=== PATIENT | female | born 1940 | race Two or more races ===

== ENCOUNTER 2019-02-04 14:50 | Inpatient (IN) | payer MEDICARE, OTHER ==
[2019-02-04] MEDS ORDERED: Sodium Chloride 0.9% 1,000 ML IV ONE (14:58)
--- NOTE | 2019-02-04 15:15 | ED Physician Chart ---
ED Chief Complaint/HPI - Patient Information Date Seen:: 02/04/19 Time Seen:: 15:00 Chief Complaint:: Flank Pain History of Present Illness:: onset x 12 hours of intermittent flank pain; pt denies trauma, LOC, ALOC, AMS, H /As,S/T, neck pain, cough, C/P, SOB, Abd. Pain, A/N/V/D/C, fever, chills, bleeding, or urinary s/s Allergies:: Allergies Allergy/AdvReac Type Severity Reaction Status Date / Time No Known Allergies Allergy Verified 02/04/19 15:07 Historian:: Patient, Family Member Review:: Nurse's Note Reviewed, Old Chart Reviewed ED Review of Systems - Review of Systems General/Constitutional: No fever, No chills, No weight loss, No weakness, No diaphoresis, No edema, No loss of appetite Skin: No skin lesions, No rash, No bruising Head: No headache, No light-headedness Eyes: No loss of vision, No pain, No diplopia ENT: No earache, No nasal drainage, No sore throat, No tinnitus Neck: No neck pain, No swelling, No thyromegaly, No stiffness, No mass noted Cardio Vascular: No chest pain, No palpitations, No PND, No orthopnea, No edema Pulmonary: No SOB, No cough, No sputum, No wheezing GI: Nausea, Vomiting, Diarrhea, Pain, No melena, No hematochezia, No constipation, No hematemesis G/U: Dysuria, No frequency, No hematuria, No nacturia Phys Assistant: No vaginal discharge, No abnormal vaginal bleed, No contraction Musculoskeletal: No bone or joint pain, No back pain, No muscle pain Endocrine: No polyuria, No polydipsia Psychiatric: No prior psych history, No depression, Anxiety, No suicidal ideation, No homicidal ideation, No auditory hallucination, No visual hallucination Hematopoietic: No bruising, No lymphadenopathy Allergic/Immuno: No urticaria, No angioedema Neurological: No syncope, No focal symptoms, No weakness, No paresthesia, No headache, No seizure, No dizziness, No confusion, No vertigo ED Past Medical History - Past Medical History Obtainable: Yes Past Medical History: HTN, DM, Dyslipidemia, ESRD, Arthritis Family History: Diabetes Melitus, HTN Social History: Non Smoker, No Alcohol, No Drug Use, Surgical History: None Psychiatricy History: None Medication: Reviewed Family Medical History - Family Member Mother History Unknown: Yes Ethnicity: Living Status: ED Physical Exam - Physical Examination General/Constitutional: Awake, Well-developed, well-nourished, Alert, No distress, GCS 15, Non-toxic appearing, Ambulatory Head: Atraumatic Eyes: Lids, conjuctiva normal, PERRL, EOMI Skin: Nl inspection, No rash, No skin lesions, No ecchymosis, Well hydrated, No lymphadenopathy ENMT: External ears, nose nl, TM canals nl, Nasal exam nl, Lips, teeth, gums nl , Oropharynx nl, Tonsils nl Neck: Nontender, Full ROM w/o pain, No JVD, No nuchal rigidity, No bruit, No mass, No stridor Other Neck comments:: supple; no meningeal signs; no cervical tenderness; no bruits Respiratory: Nl effort/Exclusion, Clear to Auscultation, No Wheeze/Rhonchi/Rales Cardio Vascular: RRR, No murmur, gallop, rubs, NL S1 S2, Carotid/Femoral/Distal pulses equal bilaterally GI: No tenderness/rebounding/guarding, No organomegaly, No hernia, Normal BS's, Nondistended, No mass/bruits, No McBurney tenderness, Rectum exam nl Other GI comments:: no pulsatile masses; good BS : No CVA tenderness Extremities: No tenderness or effusion, Full ROM, normal strength in all extremities, No edema, Normal digits & nails Neuro/Psych: Alert/oriented, DTR's symmetric, Normal sensory exam, Normal motor strength, Judgement/insight normal, Mood normal, Normal gait, No focal deficits Other Neuro/Psych comments:: no focal signs Misc: Normal back, No paraspinal tenderness ED Labs/Radiology/EKG Results - Lab Results Comments:: Reviewed - Radiology Results Comments:: + Diverticulosis; NAD - EKG Interpretations EKG Time:: 15:18 Rate & Rhythm: 57; SB Comments:: non-specific st-t changes ED Septic Shock - . Is Septic Shock (SBP<90, OR Lactate>4 mmol\L) present?: No ED Reassessment (Disposition) - Reassessment Reassessment Condition:: Improved - Diagnosis Diagnosis:: Flank Pain; Anemia; Dehydration; Hyponatremia; Pre-Renal Azotemia; CKD; UTI - Aftercare/Follow up Instructions Aftercare/Follow-Up Instructions:: Counseled pt regarding lab results/diagnosis & need follow up, Counseled pt & family regarding lab results/diagnosis & need follow up - Patient Disposition Discharge/Transfer:: Acute Care w/in this hosp Accepting Physician:: Dr. Cadet Time Called:: 1700 Time Responded:: 17:00 Admitted to:: Telemetry Spoke to:: Dr. Cadet Admitting Medical Physician:: Dr. Cadet Condition at Disposition:: Stable, Improved
[2019-02-04 15:21] LABS: % BASOPHILS 0.7 % (0.0-2.0); % EOSINOPHILS 5.5 % (0.0-5.0); % MONOCYTES 9.4 % (2.0-10.0); % NEUTROPHILS 58.4 % (40.0-80.0); EOSINOPHILE ABSOLUTE 0.4 Th/cmm (0.1-0.4); HEMOGLOBIN 9.4 gm/dL (12-16); LYMPHOCYTE ABSOLUTE 1.7 Th/cmm (1.5-3.0); MEAN CELL VOLUME 94.3 fl (81-100); MEAN CORPUSCULAR HEMOGLOBIN 31.7 pg (27.0-31.0); MEAN CORPUSCULAR HGB CONC 33.7 pg (28.0-36.0); MEAN PLATELET VOLUME 7.4 fl; MONOCYTE ABSOLUTE 0.6 Th/cmm (0.3-1.0); NEUTROPHILE ABSOLUTE 3.9 Th/cmm (1.8-8.0); PLATELET COUNT 255 Th/cmm (150-400); RED BLOOD COUNT 2.98 Mil/cmm (3.80-5.20); RED CELL DISTRIBUTION WIDTH 12.6 % (11.5-20.0); WHITE BLOOD COUNT 6.6 Th/cmm (4.8-10.8)
[2019-02-04 15:33] LABS: ALB/GLOB RATIO 1.4 (1.0-1.8); ALKALINE PHOSPHATASE 65 U/L (34-104); AMYLASE SERUM 85 U/L (29-103); ANION GAP 15.5 (7.0-16.0); BILIRUBIN,TOTAL 0.5 mg/dL (0.3-1.0); BUN - UREA NITROGEN 65 mg/dL (7-25); CALCIUM SERUM 9.1 mg/dL (8.6-10.3); CHLORIDE 106 mEq/L (98-107); CREATININE - SERUM 2.2 mg/dL (0.6-1.2); GLUCOSE 94 mg/dL (70-105); LIPASE 83 U/L (11-82); POTASSIUM SERUM 4.5 mEq/L (3.5-5.1); SGOT 19 U/L (13-39); SGPT/ALT 17 U/L (7-52); SODIUM SERUM 134 mEq/L (136-145); TOTAL PROTEIN,SERUM 6.8 gm/dL (6.0-8.3)
[2019-02-04 15:36] LABS: URINE SOURCE CLEAN C
[2019-02-04 15:38] LABS: URINE BILIRUBIN NEGATIVE (NEGATIVE); URINE BLOOD NEGATIVE (NEGATIVE); URINE GLUCOSE (UA) NEGATIVE (NEGATIVE); URINE KETONE NEGATIVE (NEGATIVE); URINE LEUKOCYTE ESTERASE SMALL (NEGATIVE); URINE NITRATE NEGATIVE (NEGATIVE); URINE PROTEIN NEGATIVE (NEGATIVE); URINE UROBILINOGEN 0.2 E.U./dL (0.2 - 1.0)
[2019-02-04 15:39] LABS: URINE CLARITY CLEAR (CLEAR); URINE COLOR YELLOW
[2019-02-04 15:40] LABS: URINE MICROSCOPIC INDICATED? YES
[2019-02-04 15:49] LABS: URINE RBC 0-2 /hpf (0-5)
[2019-02-04 15:50] LABS: URINE BACTERIA FEW /hpf (NONE SEEN); URINE EPITHELIAL CELLS MODERATE /lpf (FEW); URINE FINE GRANULAR CAST 0-2 /lpf (NONE SEEN)
[2019-02-04] MEDS ORDERED: cefTRIAXone 1 GM in Sodium Chloride 0.9% 50 ML IV ONE (16:13)
[2019-02-04] MEDS: Sodium Chloride 0.9% 1,000 ML IV SCH (19:00)
[2019-02-04] MEDS: Ferrous Sulfate 325 MG TAB PO SCH (21:42)
[2019-02-05 05:29] VITALS: BP 129/68
[2019-02-05 05:40] LABS: % BASOPHILS 0.7 % (0.0-2.0); % LYMPHOCYTES 17.4 % (20.0-50.0); % MONOCYTES 6.1 % (2.0-10.0); % NEUTROPHILS 72.8 % (40.0-80.0); BASOPHILE ABSOLUTE 0.1 Th/cumm (0-0.2); EOSINOPHILE ABSOLUTE 0.2 Th/cmm (0.1-0.4); HEMATOCRIT 27.6 % (41.0-60); HEMOGLOBIN 9.1 gm/dL (12-16); LYMPHOCYTE ABSOLUTE 1.4 Th/cmm (1.5-3.0); MEAN CELL VOLUME 94.6 fl (81-100); MEAN CORPUSCULAR HEMOGLOBIN 31.1 pg (27.0-31.0); MEAN CORPUSCULAR HGB CONC 32.9 pg (28.0-36.0); MEAN PLATELET VOLUME 7.9 fl; MONOCYTE ABSOLUTE 0.5 Th/cmm (0.3-1.0); PLATELET COUNT 231 Th/cmm (150-400); RED BLOOD COUNT 2.92 Mil/cmm (3.80-5.20); RED CELL DISTRIBUTION WIDTH 12.6 % (11.5-20.0)
[2019-02-05 05:50] LABS: WHITE BLOOD COUNT 8.2 Th/cmm (4.8-10.8)
[2019-02-05 05:54] LABS: ALB/GLOB RATIO 1.4 (1.0-1.8); ALBUMIN 3.3 gm/dL (3.7-5.3); ALKALINE PHOSPHATASE 57 U/L (34-104); BILIRUBIN,TOTAL 0.5 mg/dL (0.3-1.0); BUN - UREA NITROGEN 59 mg/dL (7-25); CALCIUM SERUM 8.6 mg/dL (8.6-10.3); CARBON DIOXIDE 17.8 mEq/L (21.0-31.0); CHLORIDE 116 mEq/L (98-107); CREATININE - SERUM 2.1 mg/dL (0.6-1.2); GLUCOSE 102 mg/dL (70-105); POTASSIUM SERUM 4.8 mEq/L (3.5-5.1); SGOT 17 U/L (13-39); SGPT/ALT 16 U/L (7-52); SODIUM SERUM 142 mEq/L (136-145); TOTAL PROTEIN,SERUM 5.7 gm/dL (6.0-8.3)
[2019-02-05] MEDS: Ferrous Sulfate 325 MG TAB PO SCH ×2 (08:26→16:04)
[2019-02-05] MEDS: Multivitamin Tab PO SCH (08:26)
--- NOTE | 2019-02-05 08:46 | Diagnostic Imaging Report ---
CT abdomen and pelvis without intravenous contrast Indication: Abdominal pain Comparison: None, Technique: Axial images were obtained from the lung bases to the bilateral proximal femurs without IV contrast. Coronal reconstructions were made. total DLP: 391, CTDI8.9 FINDINGS: Hypoventilatory and atelectatic changes of the lung bases are noted. Evaluation of the solid organs is limited due to lack of IV contrast. There is a subcentimeter low-density lesion within the left lobe of the liver, too small to characterize but suggestive of a cyst. No radiopaque gallstones. No focal splenic, pancreatic, or adrenal lesions. Nonspecific mild perinephric inflammatory changes are noted. No evidence of hydronephrosis or nephrolithiasis. There is area of fat density along the left inguinal region which appears to be located lateral to the left inguinal canal and medial to the left femoral vessels. There may be an opening seen on coronal image 34, series 3. This area measures 6.0 x 3.5 cm containing fat. Minimal inflammatory changes are seen along the anterior left lower quadrants lower segmental region. The bladder is underdistended limiting its evaluation. There are moderate stool throughout the colon. Diverticulosis is noted without diverticulitis. No appendicitis. No free fluid or free air. Heavy atherosclerotic vascular noted. Degenerative changes of the spine and pelvis are noted. Borderline prominent right inguinal lymph nodes are noted. IMPRESSION: No evidence of appendicitis Diverticulosis without evidence of diverticulitis. Nonspecific generalized gas loops of bowel. Fat density area measuring 6.0 x 3.5 cm located lateral to the left inguinal canal medial to the femoral vessels. A small occult fat-containing hernia cannot be excluded. There are minimal inflammatory changes seen along the left lower quadrant omental region. If this is a fat-containing hernia lateral to the left inguinal region, the opening may be seen at coronal image 34, series 3. Other etiologies such as a lipoma is less likely. Clinical correlation and correlation with old exams would be helpful. Heavy atherosclerotic vascular disease.
--- NOTE | 2019-02-05 09:37 | Internal Medicine Prog Note ---
Internal Medicine Subjective - Subjective Service Date: 02/05/19 (no acute events. C/O lbp/flank pain.) Patient is:: awake, in bed Per staff patient has:: no adverse event Internal Medicine Objective - Results Result Diagrams: 02/05/19 05:15 02/05/19 05:15 Recent Labs: Laboratory Last Values WBC 8.2 Th/cmm (4.8-10.8) D 02/05/19 05:15 RBC 2.92 Mil/cmm (3.80-5.20) L 02/05/19 05:15 Hgb 9.1 gm/dL (12-16) L 02/05/19 05:15 Hct 27.6 % (41.0-60) L 02/05/19 05:15 MCV 94.6 fl (81-100) 02/05/19 05:15 MCH 31.1 pg (27.0-31.0) H 02/05/19 05:15 MCHC Differential 32.9 pg (28.0-36.0) 02/05/19 05:15 RDW 12.6 % (11.5-20.0) 02/05/19 05:15 Plt Count 231 Th/cmm (150-400) 02/05/19 05:15 MPV 7.9 fl 02/05/19 05:15 Neutrophils % 72.8 % (40.0-80.0) 02/05/19 05:15 Lymphocytes % 17.4 % (20.0-50.0) L 02/05/19 05:15 Monocytes % 6.1 % (2.0-10.0) 02/05/19 05:15 Eosinophils % 3.0 % (0.0-5.0) 02/05/19 05:15 Basophils % 0.7 % (0.0-2.0) 02/05/19 05:15 Sodium 142 mEq/L (136-145) 02/05/19 05:15 Potassium 4.8 mEq/L (3.5-5.1) 02/05/19 05:15 Chloride 116 mEq/L (98-107) H 02/05/19 05:15 Carbon Dioxide 17.8 mEq/L (21.0-31.0) L 02/05/19 05:15 Anion Gap 13.0 (7.0-16.0) 02/05/19 05:15 BUN 59 mg/dL (7-25) H 02/05/19 05:15 Creatinine 2.1 mg/dL (0.6-1.2) H 02/05/19 05:15 Est GFR ( Amer) TNP 02/05/19 05:15 Est GFR (Non-Af Amer) TNP 02/05/19 05:15 BUN/Creatinine Ratio 28.1 02/05/19 05:15 Glucose 102 mg/dL (70-105) 02/05/19 05:15 Calcium 8.6 mg/dL (8.6-10.3) 02/05/19 05:15 Total Bilirubin 0.5 mg/dL (0.3-1.0) 02/05/19 05:15 AST 17 U/L (13-39) 02/05/19 05:15 ALT 16 U/L (7-52) 02/05/19 05:15 Alkaline Phosphatase 57 U/L (34-104) 02/05/19 05:15 Troponin I < 0.01 ng/mL (0.01-0.05) L 02/04/19 15:10 Total Protein 5.7 gm/dL (6.0-8.3) L 02/05/19 05:15 Albumin 3.3 gm/dL (3.7-5.3) L 02/05/19 05:15 Globulin 2.4 gm/dL 02/05/19 05:15 Albumin/Globulin Ratio 1.4 (1.0-1.8) 02/05/19 05:15 Amylase 85 U/L (29-103) 02/04/19 15:10 Lipase 83 U/L (11-82) H 02/04/19 15:10 TSH 1.88 uIU/ml (0.34-5.60) 02/05/19 05:15 Urine Source CLEAN C 02/04/19 15:00 Urine Color YELLOW 02/04/19 15:00 Urine Clarity CLEAR (CLEAR) 02/04/19 15:00 Urine pH 6.0 (4.6 - 8.0) 02/04/19 15:00 Ur Specific [place] 1.015 (1.005-1.030) 02/04/19 15:00 Urine Protein NEGATIVE mg/dL (NEGATIVE) 02/04/19 15:00 Urine Glucose (UA) NEGATIVE mg/dL (NEGATIVE) 02/04/19 15:00 Urine Ketones NEGATIVE mg/dL (NEGATIVE) 02/04/19 15:00 Urine Blood NEGATIVE (NEGATIVE) 02/04/19 15:00 Urine Nitrate NEGATIVE (NEGATIVE) 02/04/19 15:00 Urine Bilirubin NEGATIVE (NEGATIVE) 02/04/19 15:00 Urine Urobilinogen 0.2 E.U./dL (0.2 - 1.0) 02/04/19 15:00 Ur Leukocyte Esterase SMALL (NEGATIVE) H 02/04/19 15:00 Urine RBC 0-2 /hpf (0-5) 02/04/19 15:00 Urine WBC 2-5 /hpf (0-5) 02/04/19 15:00 Ur Epithelial Cells MODERATE /lpf (FEW) 02/04/19 15:00 Urine Bacteria FEW /hpf (NONE SEEN) 02/04/19 15:00 Fine Granular Casts 0-2 /lpf (NONE SEEN) H 02/04/19 15:00 - Physical Exam Vitals and I&O: Vital Signs Temp 98.0 F 02/05/19 09:17 Pulse 68 02/05/19 09:17 Resp 18 02/05/19 09:17 BP 137/34 02/05/19 09:17 Pulse Ox 98 02/05/19 09:17 Intake & Output 02/04/19 02/05/19 02/05/19 18:59 06:59 18:59 Intake Total 400 Balance 400 Weight (lbs) 53.524 kg 55.792 kg Intake: Oral 400 Other: # Voids 2 Weight Source Patient stated Bedscale Active Medications: Current Medications Ferrous Sulfate (Iron) 325 mg PO BID BARBY Stop: 04/05/19 21:14 Last Admin: 02/05/19 08:26 Dose: 325 mg Ceftriaxone Sodium 1 gm/ (Sodium Chloride) 50 mls @ 100 mls/hr IV Q24HR BARBY Stop: 04/06/19 17:29 Sodium Chloride (Nacl 0.9%) 1,000 mls @ 75 mls/hr IV .[id number] BARBY Stop: 04/05/19 18:48 Last Admin: 02/04/19 19:00 Dose: 75 mls/hr Ketorolac Tromethamine (Toradol) 15 mg IVP Q6H PRN PRN Reason: PAIN Stop: 04/05/19 18:48 Multivitamins/Vitamin C (Theragran) 1 tab PO DAILY BARBY Stop: 04/06/19 08:59 Last Admin: 02/05/19 08:26 Dose: 1 tab Ondansetron HCl (Zofran) 4 mg IV Q4H PRN PRN Reason: Nausea / Vomiting Stop: 04/05/19 18:48 Pantoprazole Sodium (Protonix) 40 mg IVP DAILY BARBY Stop: 04/06/19 08:59 Last Admin: 02/05/19 08:26 Dose: 40 mg Pramipexole Dihydrochloride (Mirapex) 1 mg PO BID [facility] Stop: 04/06/19 08:59 General: NAD HEENT: NC/AT, PERRLA, EOMI, throat clear Neck: Supple, No JVD, No LAD Lungs: CTAB Cardiovascular: RRR, Normal S1, Normal S2, without murmur Abdomen: soft, non-tender, non-distended Extremities: clear Neurological: no change, alert Internal Medicine Assmt/Plan - Assessment Assessment: 1) Bilateral flank pain/lbp-DDX: Lumbago/sciatica vs less likely renal colic, pyelonephritis. 2) UTI-follow c/s. 3) Diverticulosis without signs of diverticulitis 4) Likerly A/CRI-improving. Off Lasix/ADRIANA-i 5) Anemia likely 2ry to above-monitor. 6) DM-2 7) Essential HTN 8) Hypercholesterolemia. 9) ASVD - Plan Plan: CONT WITH CURRENT MS SUPPORTIVE CARE AND MGT CONT WITH IVF, IV ABXS, IV PPI FOLLOW C/S, LABS FOLLOW FE PANEL/TUMOR MARKERS CONT WITH OTHER HOME MEDS SCHEDULED LS SPINE SERIES
--- NOTE | 2019-02-05 10:12 | History & Physical ---
ADMIT DATE: 02/04/2019 CHIEF COMPLAINT: Bilateral flank and lower back pain, generalized malaise, headaches. HISTORY OF PRESENT ILLNESS: The patient is a 78-year-old female with history of essential hypertension, type 2 diabetes, hyperlipidemia, chronic renal insufficiency and history of osteoarthritis, who presented to the ER with a 12-hour history of intermittent flank pain on both sides. She states that the pain is in the low back with radiation to both lower extremities. She denies any similar previous episodes and currently denies any UTI symptomatology. The pain was associated with some weakness as well as tactile fever and chills; therefore, she decided to come into the ER for further management and care. At the ED, pertinent findings include an H and H of 9.4/28.0, sodium 134, BUN of 65, creatinine of 2.2, and a UA showing small leukocyte esterase. She also underwent an abdominal and pelvic CT showing no evidence of appendicitis, diverticulosis without evidence of diverticulitis and nonspecific generalized gas loops of bowel. There was a fat density area measuring 6.0 x 3.5 cm, located lateral to the left inguinal canal medial to the femoral vessels. A small occult fat containing hernia cannot be excluded. There were also minimal inflammatory changes seen along the left lower quadrant omental region. There was also evidence of heavy atherosclerotic vascular disease. PAST MEDICAL HISTORY: As noted above. PAST SURGERIES: Denied. FAMILY HISTORY: Diabetes, hypertension. SOCIAL HISTORY: Denies any tobacco, ETOH, or illicit drug usage. She lives at home with family. ALLERGIES: NKDA. OUTPATIENT MEDICATIONS: Aspirin 81 q. day, Coreg 6.25 b.i.d., Lasix 40 mg q. day, lisinopril 5 mg q. day, Megace 20 mg p.o. b.i.d., iron sulfate 325 b.i.d., multivitamins q. day and pramipexole 1 mg b.i.d. REVIEW OF SYSTEMS: CONSTITUTIONAL: Generalized malaise and chills as noted above. No recent weight loss. CARDIOVASCULAR: Denies chest pain, angina or palpitations. PULMONARY: No cough, phlegm production. No shortness of breath. GASTROINTESTINAL: No nausea, vomiting. No abdominal pain. Denies any melena or bright red blood per rectum. GENITOURINARY: Flank pain, but denies any painful urination, any dysuria, any hematuria or nocturia. NEUROLOGIC: No syncopal episodes. No headaches, no double vision, or blurry vision. PHYSICAL EXAMINATION: Back exam, there is some tenderness to palpation noted on the lumbar area. No obvious CVA tenderness noted at this time. LABORATORY DATA: Labs on admission; white count 6.6, H and H 9/28, platelet count of 255. Sodium 134, potassium 4.5, chloride 106, CO2 17, BUN 65, creatinine 2.2. Troponins were negative x 1 set. Lipase 83. UA shows small leukocyte esterase with 2-5 wbc's and few bacteria. DIAGNOSTICS: Please refer to the HPI. ASSESSMENT: 1. Bilateral flank pain with radiation to the lower extremities. Differential includes a musculoskeletal origin, i.e., lumbago with sciatica versus less likely renal colic. 2. Urinary tract infection. 3. Diverticulosis with no evidence of diverticulitis. 4. Likely acute on chronic renal insufficiency. 5. History of type 2 diabetes. 6. History of essential hypertension. 7. History of hyperlipidemia. 8. History of atherosclerotic vascular disease. 9. Anemia, likely secondary to her chronic renal insufficiency. PLAN: The patient has been admitted to the medical floor for further management and care. She has been placed on IV hydration and for the time being, the Lasix and lisinopril have been withheld. She has also been placed on IV antibiotics and we will follow urine cultures and sensitivities. She has been placed on Protonix IV and an iron panel as well as a CEA level and occult blood testing have been ordered. Given her flank low back pain, I will also ask for lumbar spine x-ray series to further eval for osteoarthritis/degenerative joint disease. JOB# [id number] [facility]
--- NOTE | 2019-02-05 11:31 | Diagnostic Imaging Report ---
Lumbar spine 3 views Indication: Low back pain with bilateral radiation Comparison: CT abdomen and pelvis performed on 02/04/2019 Findings: The lateral view is limited due to positioning. Osteopenia is noted. Moderate to advanced degenerative changes are noted greatest along the facet joints of the lower lumbar spine. Mild multilevel disc space loss of height is noted. No acute compression fracture or subluxation. The SI joints demonstrate mild degenerative changes. Diffuse atherosclerosis is noted. Impression: Moderate to advanced degenerative changes greatest along the facet joints of the lower lumbar spine. Osteopenia. Atherosclerotic vascular disease. In the setting of trauma, if clinical symptoms persist and there is continued concern for an occult fracture, follow up exams in 5-7 days is suggested.
[2019-02-05] MEDS: Sodium Chloride 0.9% 1,000 ML IV SCH (12:21)
[2019-02-05] MEDS: cefTRIAXone 1 GM in Sodium Chloride 0.9% 50 ML IV SCH (16:32)
[2019-02-06 06:14] LABS: % BASOPHILS 0.3 % (0.0-2.0); % EOSINOPHILS 5.2 % (0.0-5.0); % LYMPHOCYTES 11.3 % (20.0-50.0); % MONOCYTES 6.6 % (2.0-10.0); % NEUTROPHILS 76.6 % (40.0-80.0); EOSINOPHILE ABSOLUTE 0.5 Th/cmm (0.1-0.4); HEMATOCRIT 26.3 % (41.0-60); HEMOGLOBIN 8.8 gm/dL (12-16); LYMPHOCYTE ABSOLUTE 1.1 Th/cmm (1.5-3.0); MEAN CELL VOLUME 93.3 fl (81-100); MEAN CORPUSCULAR HEMOGLOBIN 31.3 pg (27.0-31.0); MEAN CORPUSCULAR HGB CONC 33.6 pg (28.0-36.0); MONOCYTE ABSOLUTE 0.7 Th/cmm (0.3-1.0); NEUTROPHILE ABSOLUTE 7.6 Th/cmm (1.8-8.0); PLATELET COUNT 221 Th/cmm (150-400); RED BLOOD COUNT 2.82 Mil/cmm (3.80-5.20); RED CELL DISTRIBUTION WIDTH 12.6 % (11.5-20.0); WHITE BLOOD COUNT 9.9 Th/cmm (4.8-10.8)
[2019-02-06 06:32] LABS: ANION GAP 11.6 (7.0-16.0); BUN - UREA NITROGEN 40 mg/dL (7-25); CALCIUM SERUM 8.5 mg/dL (8.6-10.3); CARBON DIOXIDE 15.9 mEq/L (21.0-31.0); CHLORIDE 118 mEq/L (98-107); CREATININE - SERUM 1.7 mg/dL (0.6-1.2); GLUCOSE 113 mg/dL (70-105); MAGNESIUM 2.6 mg/dL (1.9-2.7); POTASSIUM SERUM 4.5 mEq/L (3.5-5.1); SODIUM SERUM 141 mEq/L (136-145)
[2019-02-06] MEDS: Multivitamin Tab PO SCH (08:36)
[2019-02-06] MEDS: Ferrous Sulfate 325 MG TAB PO SCH ×2 (08:36→16:51)
[2019-02-06] MEDS: Sodium Chloride 0.9% 1,000 ML IV SCH (08:52)
[2019-02-06 11:09] LABS: CARCINOEMBRYONIC ANTIGEN 2.2 ng/mL (0.0-4.7)
[2019-02-06] MEDS: cefTRIAXone 1 GM in Sodium Chloride 0.9% 50 ML IV SCH (16:54)
--- NOTE | 2019-02-06 17:03 | Discharge Summary ---
DATE OF DISCHARGE: 02/06/2019 DATE OF DISCHARGE: 02/06/2019. ADMITTING DIAGNOSES: 1. Bilateral flank pain with radiation to the lower extremities. Differential: musculoskeletal in origin, i.e., lumbago versus sciatica vs. less likely renal etiology such as a kidney stone or pyelonephritis. 2. Urinary tract infection. 3. Dehydration. 4. Likely [id number] renal insufficiency. 5. Generalized weakness and tiredness. 6. Anemia, likely chronic anemia in nature. 7. Diverticulosis per CT scan. SECONDARY DIAGNOSES: Include history of type 2 diabetes, history of essential hypertension, hyperlipidemia and history of coronary artery disease with previous congestive heart failure. DISCHARGE DIAGNOSES: 1. Bilateral flank pain/back pain -- improved, likely secondary to moderate to advance degenerative changes in the L-spine per L-spine x-ray 2. Urinary tract infection -- clinically stable. 3. [id number] renal insufficiency -- improved. Off Lasix/sadi-i. 4. Diverticulosis with no evidence of diverticulitis -- clinically stable. 5. Chronic anemia -- stable. 6. Generalized weakness -- improved. CONSULTANTS: No consultants were used during this admission. MAJOR PROCEDURES: Abdominal pelvic CT done on 02/04/2019 showed no evidence of appendicitis. Diverticulosis without evidence of diverticulitis. Nonspecific and generalized gas loops of bowel. There was a fat density area measuring 6 cm x 3.5 located lateral to the left inguinal canal medial to the femoral vessels and there is heavy atherosclerotic vascular disease. L-spine x-ray series done on 02/05/2019 shows moderate to advance degenerative changes, greatest along the facet joints of the lumbar spine, osteopenia and atherosclerotic vascular disease. BRIEF HOSPITAL COURSE: This is a 78-year-old female with history of essential hypertension, type 2 diabetes, hyperlipidemia, chronic renal insufficiency, history of osteoarthritis, who presented to the ER with a 12-hour history of intermittent bilateral flank pain with radiation to lower extremities. The patient also had some mild UTI symptomatology as well as generalized weakness, tiredness and malaise. Given the fact that she had the back pain she thought she had a kidney stone or kidney infection, but pertinent findings noted at the ER yielded a BUN of 65, creatinine 2.2 and a UA showing small leukocyte esterase with no signs of overt kidney infection or other pathology such as appendicitis given that the CT of the abdomen only showed diverticulosis without evidence of diverticulitis. The patient was admitted to the medical floor and placed on IV fluids, IV antibiotics and was taken off her Lasix. Her initial white count was noted to be normal at 6.6 and by 02/06/2019, her BUN and creatinine had improved to a level of 40/1.7. Given her anemia, a CEA level and occult blood testing were done, which were both negative. She participated with physical therapy, able to ambulate, but still with pain, mostly located on her lumbar area with reports of some weakness while ambulating. Her vital signs including her temperature have remained stable throughout her hospital stay and her pain has been controlled with Toradol and Tylenol. DISCHARGE MEDICATIONS: Amlodipine 10 mg every day, Cipro 250 mg every day x 7 days, aspirin 81 mg every day, Coreg 6.25 mg b.i.d., Megace 20 mg b.i.d., iron sulfate 325 mg b.i.d., multivitamins every day and Pramipexole 1 mg b.i.d. CONDITION ON DISCHARGE: Stable. DISPOSITION: Discharged home with home health per family's request for PT and continuation of home. JOB# [id number] [facility]
== END 2019-02-06 17:30 | disposition home health service (06) | DRG 690 ==
LOC: ER 14:50 → TELE 17:30 → OBSVTOIN 02-05 14:57
PROVIDERS: ADMIT Internal Medicine; ATTEND Internal Medicine
DX: N39.0 Urinary tract infection, site not specified (principal); E87.1 Hypo-osmolality and hyponatremia; I13.0 Hypertensive heart and chronic kidney disease with heart failure and stage 1 through stage 4 chronic kidney disease, or unspecified chronic kidney disease; M47.816 Spondylosis without myelopathy or radiculopathy, lumbar region; E78.5 Hyperlipidemia, unspecified; N18.9 Chronic kidney disease, unspecified; M19.90 Unspecified osteoarthritis, unspecified site; E86.0 Dehydration; D64.9 Anemia, unspecified; E11.22 Type 2 diabetes mellitus with diabetic chronic kidney disease; K57.30 Diverticulosis of large intestine without perforation or abscess without bleeding; I25.10 Atherosclerotic heart disease of native coronary artery without angina pectoris; E78.00 Pure hypercholesterolemia, unspecified; I50.9 Heart failure, unspecified
CPT/HCPCS: 36415-UA; 72100-TC; 80048-TC; 80053-TC; 81001-TC; 82150-TC; 82270-TC; 82378-90; 83036-90; 83540-90; 83550-90; 83690-TC; 83735-TC; 84443-TC; 84484-TC; 85025-TC; 93005; 97530; C9113; G0378; J0696; J1885; J2405; J7030; X3904; Z7610